=== PATIENT | male | born 1970 | race African-American/Black ===

== ENCOUNTER 2019-04-30 09:56 | Emergency (ER) | payer MEDICAID, OTHER ==
[~2019-04-30] VITALS: Ht 188 cm; Wt 86.4 kg
[~2019-04-30 09:56] MED LIST: CYCL10 PO; TRAM50TA4 PO
[2019-04-30 09:59] VITALS: BP 142/87
[2019-04-30] MEDS ORDERED: CLON0.1T2 PO (10:08)
== END 2019-04-30 12:49 | disposition home or self-care (01) ==
LOC: EMS 09:57
DX: F20.9 Schizophrenia, unspecified (principal); I10 Essential (primary) hypertension; F17.210 Nicotine dependence, cigarettes, uncomplicated; F15.10 Other stimulant abuse, uncomplicated; F12.90 Cannabis use, unspecified, uncomplicated; Z98.890 Other specified postprocedural states; Z79.899 Other long term (current) drug therapy
CPT/HCPCS: 99406

== ENCOUNTER 2021-05-22 09:21 | Emergency (ER) | payer MEDICAID, OTHER ==
[~2021-05-22] VITALS: Ht 193 cm; Wt 90.9 kg
[~2021-05-22 09:21] MED LIST changes: +CLON0.1T2 PO; -CYCL10 PO; -TRAM50TA4 PO
[2021-05-22 09:54] VITALS: BP 137/90
[2021-05-22] MEDS ORDERED: PERMETHRIN 1% 60 ML LOTION TP ONE (10:15)
== END 2021-05-22 10:39 | disposition home or self-care (01) ==
LOC: EMS 09:21
DX: S60.562A Insect bite (nonvenomous) of left hand, initial encounter (principal); S60.561A Insect bite (nonvenomous) of right hand, initial encounter; F17.210 Nicotine dependence, cigarettes, uncomplicated; F12.90 Cannabis use, unspecified, uncomplicated; I10 Essential (primary) hypertension; W57.XXXA Bitten or stung by nonvenomous insect and other nonvenomous arthropods, initial encounter; Y93.89 Activity, other specified; Y92.89 Other specified places as the place of occurrence of the external cause; Y99.8 Other external cause status
CPT/HCPCS: 99282; Z7502; Z7610

== ENCOUNTER 2022-02-01 08:24 | Emergency (ER) | payer OTHER ==
[~2022-02-01] VITALS: Ht 193 cm; Wt 104.5 kg
[2022-02-01 10:06] VITALS: BP 135/85
[2022-02-01] MEDS ORDERED: ACYC-138 PO (10:13)
[2022-02-01] MEDS ORDERED: TRAM50TA4 PO (10:13)
== END 2022-02-01 10:20 | disposition home or self-care (01) ==
LOC: EMS 08:24
DX: B02.9 Zoster without complications (principal); I10 Essential (primary) hypertension; F17.210 Nicotine dependence, cigarettes, uncomplicated; F12.90 Cannabis use, unspecified, uncomplicated; Z98.890 Other specified postprocedural states
CPT/HCPCS: 99283

== ENCOUNTER 2023-04-09 09:57 | Emergency (ER) | payer OTHER ==
[~2023-04-09] VITALS: Ht 193 cm; Wt 97.7 kg
[~2023-04-09 09:57] MED LIST changes: +ACYC-138 PO; -CLON0.1T2 PO; +TRAM-559 PO
[2023-04-09 10:31] VITALS: BP 128/78; PULSE 62; RESP 16; TEMP 98
[2023-04-09 10:35] LABS: COVID AG,FIA SOURCE NASAL SWAB
[2023-04-09 10:53] LABS: SARS-COV2 (COVID) ANTIGEN,FIA Negative (Negative)
[2023-04-09 10:54] LABS: INFLUENZA TYPE A NEGATIVE FOR TYPE A (NEGATIVE); INFLUENZA TYPE B NEGATIVE FOR TYPE B (NEGATIVE)
== END 2023-04-09 12:09 | disposition home or self-care (01) ==
LOC: EMS 09:57
DX: J06.9 Acute upper respiratory infection, unspecified (principal); I10 Essential (primary) hypertension; F17.210 Nicotine dependence, cigarettes, uncomplicated; F12.90 Cannabis use, unspecified, uncomplicated; Z98.890 Other specified postprocedural states; Z20.822 Contact with and (suspected) exposure to COVID-19
CPT/HCPCS: 87804; 99283